=== PATIENT | male | born 1955 | race Caucasian/White ===

== ENCOUNTER 2018-05-11 08:45 | Emergency (ER) | payer BC ==
[~2018-05-11] VITALS: Ht 167.6 cm; Wt 67.0 kg
[2018-05-11] MEDS ORDERED: LIDOCAINE HCL/EPINEPHRINE 1%-EPI 1:100,000 30 ML VIAL INFIL ONE (09:15)
[2018-05-11] MEDS ORDERED: BACITRACIN ZINC OINT UDPKT TOP ONE (09:15)
[2018-05-11] MEDS ORDERED: ONDANSETRON 4MG ODT PO ONE (09:15)
[2018-05-11] MEDS ORDERED: MORPHINE SULFATE 10 MG/ML CPJ IM ONE (09:15)
[2018-05-11] MEDS ORDERED: LIDOCAINE HCL/PF 1% 10 MG/ML 5ML VIAL IJ ONE (09:15)
[2018-05-11] MEDS ORDERED: TETANUS, DIPHTHERIA, PERTUSSIS VAC/PF 0.5ML (>7YR OLD) IM ONE (09:15)
[2018-05-11] MEDS ORDERED: LIDOCAINE HCL/EPINEPHRINE 1%-EPI 1:100,000 20 ML VIAL INFIL NR (10:00)
[2018-05-11 11:20] VITALS: BP 160/92
== END 2018-05-11 11:32 | disposition home or self-care (01) ==
LOC: ER 08:45
DX: S61.412A Laceration without foreign body of left hand, initial encounter (principal); W26.0XXA Contact with knife, initial encounter; Y93.89 Activity, other specified; Y92.89 Other specified places as the place of occurrence of the external cause
CPT/HCPCS: 12001; 73130; 90471; 90715; 96372; 99283; J2270; J3490; Q0162